=== PATIENT | male | born 1965 | race Caucasian/White ===

== ENCOUNTER 2021-11-02 08:28 | Day surgery (SDC) | payer BC ==
[~2021-11-02 08:28] MED LIST: Lactated Ringers 1,000 ML IV SCH
[2021-11-02] MEDS ORDERED: fentaNYL 100 MCG/2 ML SDV ONE (10:34)
[2021-11-02] MEDS ORDERED: Propofol 200 MG/20 ML SDV ONE ×2 (10:34→11:02)
== END 2021-11-02 12:25 | disposition home or self-care (01) ==
LOC: VM.SDS 08:28
PROVIDERS: ATTEND Student in an Organized Health Care Education/Training Program
DX: D12.3 Benign neoplasm of transverse colon (principal); F32.A Depression, unspecified; F41.9 Anxiety disorder, unspecified; Z98.890 Other specified postprocedural states; Z87.891 Personal history of nicotine dependence; Z79.899 Other long term (current) drug therapy
CPT/HCPCS: 00812; J2704; J3010; J7120